=== PATIENT | female | born 1965 | race Caucasian/White ===

== ENCOUNTER 2022-03-27 15:45 | Emergency (ER) | payer BC, MEDICARE ==
[2022-03-27] MEDS ORDERED: Zofran 4 MG/2 ML VIAL IV ONE (15:53)
[2022-03-27] MEDS ORDERED: MORPHINE SULFATE 4 MG INJ IV ONE (15:53)
[2022-03-27] MEDS ORDERED: Zofran 4 MG/2 ML VIAL ONE (15:55)
[2022-03-27] MEDS ORDERED: Hydromorphone 1 mg/ml Injection IV ONE ×2 (15:56→16:39)
[2022-03-27] MEDS ORDERED: Hydromorphone 1 mg/ml Injection ONE ×2 (15:57→16:50)
--- NOTE | 2022-03-27 16:38 | ERPHSYRPT ---
- History of Present Illness Time Seen by Provider: 03/27/22 15:56 Source: patient Exam Limitations: no limitations Patient Subjective Stated Complaint: Left shoulder injury Triage Nursing Assessment: Patient ambulated back to ED and transferred self to bed. Patient A+O X3. Patient's skin pink, cool and clammy. Patient states she tripped while holding her grandchild landing on her left shoulder. Patient complains of constant pain 10/10 to left shoulder. Physician History: 56-year-old female presented in the ER with chief complaint of left shoulder pain after she tripped over a toy while holding her grandchild and landed on left shoulder. She is complaining of severe sharp shooting pain with minimal movements of left upper extremity and no significant relieving factors except some partial relief with being still. No numbness tingling in the fingers/arm. Did not hit her head, no loss of consciousness. No injury anywhere else. No difficulty breathing or chest pain. Occurred: just prior to arrival Method of Injury: fell Quality: constant, sharpness Severity of Pain-Max: severe Severity of Pain-Current: severe Extremities Pain Location: shoulder: left Modifying Factors: Improves With: immobilization. Worsens With: movement Associated Symptoms: none Allergies/Adverse Reactions: No Known Drug Allergies Allergy (Unverified 03/27/22 15:59) Hx Influenza Vaccination/Date Given: No Hx Pneumococcal Vaccination/Date Given: No Immunizations Up to Date: Yes Travel Risk - International Travel Have you traveled outside of the country in past 3 weeks: No - Coronavirus Screening Are you exhibiting any of the following symptoms?: No - Vaccine Status Have you recieved a Covid-19 vaccination: No - Review of Systems Constitutional: No Symptoms Eyes: No Symptoms Ears, Nose, & Throat: No Symptoms Respiratory: No Symptoms Cardiac: No Symptoms Abdominal/Gastrointestinal: No Symptoms Genitourinary Symptoms: No Symptoms Musculoskeletal: Fall, Injury, Joint Pain Skin: No Symptoms Neurological: No Symptoms Endocrine: No Symptoms Hematologic/Lymphatic: No Symptoms Immunological/Allergic: No Symptoms - Past Medical History Pertinent Past Medical History: Yes Neurological History: Stroke ENT History: No Pertinent History Cardiac History: Myocardial Infarction ([place]) Respiratory History: No Pertinent History Endocrine Medical History: Diabetes Type II Musculoskeletal History: No Pertinent History GI Medical History: No Pertinent History History: No Pertinent History Psycho-Social History: No Pertinent History Female Reproductive Disorders: No Pertinent History - Social History Smoking Status: Never smoker Exposure to second hand smoke: Yes Drug Use: none Patient Lives Alone: Yes - Nursing Vital Signs Nursing Vital Signs: Initial Vital Signs Temperature 96.2 F 03/27/22 16:01 Pulse Rate 81 03/27/22 16:01 Respiratory Rate 19 03/27/22 16:01 Blood Pressure 183/84 03/27/22 16:01 O2 Sat by Pulse Oximetry 95 03/27/22 16:01 Pain Scale Pain Intensity 10 - Physical Exam General Appearance: no apparent distress, alert Eyes, Ears, Nose, Throat Exam: normal ENT inspection Neck Exam: normal inspection, non-tender, supple, full range of motion Cardiovascular/Respiratory Exam: chest non-tender, normal breath sounds, regular rate/rhythm Abdominal Exam: non-tender, soft Back Exam: normal inspection, normal range of motion Shoulder Exam: normal inspection, bone tenderness, limited ROM (Left shoulder left), pain, soft tissue tenderness Elbow/Forearm Exam: normal inspection, non-tender, no evidence of injury, normal ROM Wrist Exam: normal inspection, non-tender, no evidence of injury, normal ROM Hand Exam: normal inspection, non-tender Neuro/Tendon Exam: normal sensation, normal motor functions, normal tendon functions Mental Status Exam: alert, oriented x 3, cooperative Skin Exam: normal color SpO2 Interpretation: normal SpO2: 95 O2 Delivery: Room Air Ordered Tests: Active Orders 24 hr Category Date Time Status IV Insertion STAT Care 03/27/22 16:03 Active Sling Application STAT Care 03/27/22 16:15 Active SHOULDER Stat Exams 03/27/22 16:05 Taken Medication Summary Discontinued Medications Generic Name Dose Route Start Last Admin Trade Name Piero PRN Reason Stop Dose Admin Hydromorphone HCl 1 mg 03/27/22 15:56 03/27/22 15:58 Hydromorphone 1 Mg/1ml Inj 1 Mg/Ml Syringe IV 03/27/22 15:57 1 mg STAT ONE Administration Hydromorphone HCl Confirm 03/27/22 15:57 Hydromorphone 1 Mg/1ml Inj 1 Mg/Ml Syringe Administered 03/27/22 15:58 Dose 1 mg .ROUTE .STK-MED ONE Morphine Sulfate 4 mg 03/27/22 15:53 03/27/22 15:57 Morphine Sulfate 4 Mg/Ml Injection IV 03/27/22 15:54 Not Given STAT ONE Ondansetron HCl 4 mg 03/27/22 15:53 03/27/22 15:57 Ondansetron Hcl 4 Mg/2 Ml Vial IV 03/27/22 15:54 4 mg STAT ONE Administration Ondansetron HCl Confirm 03/27/22 15:55 Ondansetron Hcl 4 Mg/2 Ml Vial Administered 03/27/22 15:56 Dose 4 mg .ROUTE .STK-MED ONE - Progress Progress: improved, pain not gone completely Progress Note: 03/27/22 16:34 57-year-old is evaluated for fall with left shoulder pain. She is given Dilaudid for symptomatic relief, x-rays showed fracture surgical neck/head of humerus. No obvious dislocation. Placed in sling. Oral analgesics and outp atient orthopedic surgery follow-up recommended. No injury anywhere else. It was a clear mechanical fall and do not need any other work-up. Counseled pt/family regarding: diagnosis, need for follow-up, rad results - Departure Departure Disposition: Home Clinical Impression: Shoulder fracture, left, Fall Condition: Stable Critical Care Time: No Referrals: WALLY DENNY MD [Primary Care Provider] - Follow Up with PCP/3 days Instructions: Shoulder Fracture (DC) Additional Instructions: Immobilization as much as possible. Take pain medications as needed. Follow-up with orthopedic surgery for reevaluation on Tuesday. Return to ER for any worsening of symptoms. [facility], [facility]ated [facility] ([facility]) [facility] in [place], [place] Located in: [facility] Address: [address] [place] [id number] Hours: Opens 8AM Mon Walking for reevaluation Tuesday. Prescriptions: Hydrocodone/Acetaminophen [Hydrocodone-Acetamin 7.5-325] 1 each PO Q6HPRN PRN 3 Days #12 tablet MDD 4 PRN Reason: Pain Ondansetron ODT 4 MG [Zofran Odt 4 mg] 1 ea PO QIDPRN PRN #7 tablet PRN Reason: n/v
[2022-03-27] MEDS ORDERED: NORCO 5/325 MG PO ONE (16:39)
[2022-03-27] MEDS ORDERED: NORCO 5/325 MG ONE (16:57)
[2022-03-27] MEDS ORDERED: Reglan 10 MG/2 ML ONE (17:26)
[2022-03-27] MEDS ORDERED: Reglan 10 MG/2 ML IV ONE (17:27)
[2022-03-27 19:19] VITALS: BP 147/80; PULSE 76; O2SAT 95
--- NOTE | 2022-03-27 19:34 | XRAY ---
Indication: Pain following fall. Comparison: None 2 AP view left shoulder demonstrates minimally displaced humeral head/neck comminuted fracture. Elsewhere osteopenia and mild AC degenerative arthropathy. No other bony, articular, or soft tissue abnormalities. Comment: Preliminary interpretation made by C. No critical discrepancy.
== END 2022-03-27 19:28 | disposition home or self-care (01) ==
LOC: ED 15:45
DX: S42.212A Unspecified displaced fracture of surgical neck of left humerus, initial encounter for closed fracture (principal); W01.0XXA Fall on same level from slipping, tripping and stumbling without subsequent striking against object, initial encounter; M25.512 Pain in left shoulder; E11.9 Type 2 diabetes mellitus without complications; Z28.310 Unvaccinated for COVID-19; Z79.891 Long term (current) use of opiate analgesic
CPT/HCPCS: 36000; 73030; 96374; 96375; 96376; 99284; J1170; J2405; A9270-GY